=== PATIENT | male | born 1935 | race Caucasian/White ===

== ENCOUNTER 2018-04-11 21:35 | Emergency (ER) | payer OTHER ==
[~2018-04-11] VITALS: Ht 175.3 cm; Wt 81.6 kg
--- NOTE | 2018-04-11 23:15 | CT SCAN REPORT ---
EXAMINATION: CT HEAD WITHOUT CONTRAST CLINICAL INFORMATION: Unresponsive. Cardiac arrest. COMPARISON: None. TECHNIQUE: Contiguous axial images of the brain were obtained without IV contrast. DLP: 613 mGy-cm. FINDINGS: There are no pathologic extra-axial fluid collections. The lateral, third, fourth ventricles are prominent, though age-appropriate and concordant with the appearance of the sulci. There is no evidence for acute intraparenchymal hemorrhage or infarct. There is neither mass nor mass effect. There is no shift of midline structures. The paranasal sinuses and mastoid air cells are clear. There are no osseous lesions. IMPRESSION: No evidence for acute intracranial injury. Age-appropriate appearance of the brain.
[2018-04-11 23:33] VITALS: BP 58/33
--- NOTE | 2018-04-11 23:44 | CT SCAN REPORT ---
EXAMINATION: CT ANGIOGRAM CHEST, ABDOMEN AND PELVIS CLINICAL INFORMATION: Unresponsive. Cardiac arrest. Concern of aortic dissection. COMPARISON: None. TECHNIQUE: Noncontrast axial images obtained through the chest abdomen pelvis. Multiple axial images were obtained through the chest abdomen and pelvis following the administration of 95 mL of Optiray 320 intravenous contrast. Coronal and sagittal reformatted images performed at CT scanner. No 3-D imaging. DLP: 2305.09 mGy-cm. FINDINGS: There is streak artifact from the patient's arms at her side. VASCULAR: The thoracic aorta is ectatic with vascular wall calcifications with no dissection of the thoracic aorta. There is intraluminal thrombus within the aorta at the aortic arch and descending aorta. There is an aneurysm of the proximal abdominal aorta. The aneurysm begins at about the level of the celiac axis. Aneurysm measures 8.2 x 7.9 cm. There is intraluminal thrombus. The lumen of the aorta measures 5.7 x 4.7 cm. There is a small track of contrast extending from the lumen into the intraluminal thrombus, axial image 62 (6). There is aneurysmal leak. Hematoma extends from the aneurysm along the right lateral retroperitoneum with hemorrhagic fluid lying along the right retroperitoneum from the diaphragm through the pelvis hematoma is displacing the right kidney anteriorly. 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 This measures 2.6 cm. There is diffuse atherosclerotic vascular wall calcifications of the aorta There is partial opacification of the origin of the celiac axis and SMA. The celiac axis is threadlike. The origin of the SMA threadlike. 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 There is limited opacification of the mesenteric vessels distal to the aneurysm. There is no contrast enhancement of the renal arteries. There is limited opacification of the iliac arteries CT CHEST: MEDIASTINUM: No mediastinal mass. No significant lymphadenopathy. There is no pericardial effusion. Endotracheal tube in place. There is mild dilatation of the proximal esophagus containing air. LUNGS: There is a moderate-sized right pneumothorax. There is marked emphysematous changes of lung. FLUID: There is no pericardial effusion. There is no pleural effusion. CHEST WALL/AXILLA: There is subcutaneous emphysema at the right anterior chest wall. There is fracture of the anterior right second, third, fourth, fifth, sixth ribs. There is fracture of the left anterior fourth, fifth ribs. CT SCAN ABDOMEN PELVIS: LIVER, GALLBLADDER, AND BILIARY TREE: The liver is normal in size, shape, and attenuation. No focal hepatic lesion or biliary ductal dilatation is present. The gallbladder is unremarkable with no evidence of radiopaque gallstones, gallbladder wall thickening, or obvious pericholecystic inflammatory changes. PANCREAS: There is fatty atrophy of the pancreas. SPLEEN: Unremarkable. ADRENAL GLANDS: Unremarkable. KIDNEYS AND URETERS: The right kidney is displaced anteriorly by the retroperitoneal hematoma. There is a nonobstructive 5 mm stone in the upper pole of left kidney. There is no hydronephrosis. There is a 2 mm stone in the right kidney in the midpole. BLADDER: Unremarkable. GASTROINTESTINAL TRACT: There is severe diverticulosis of left colon and sigmoid. There are scattered diverticula right colon. No diverticulitis. No bowel obstruction. No bowel wall thickening or edema. The appendix is not seen. The small bowel loops are normal. ABDOMINAL WALL: No significant hernia is appreciated. LYMPH NODES: Normal. PELVIC VISCERA: Unremarkable. OSSEOUS STRUCTURES: Multilevel degenerative spondylosis spine with disc height narrowing and endplate spurring of the vertebrae. There are bilateral rib fractures. On the right there is fracture of the right second through sixth ribs. On the left there is fracture of the anterior fourth and fifth ribs. IMPRESSION: 1. Right-sided pneumothorax. Bilateral anterior fractures. Subcutaneous emphysema in the right anterior chest wall. 2. Marked emphysematous changes of lung. 3. 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 There is dissection of the aneurysm with retroperitoneal bleed. 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 There is poor perfusion of the abdominal vessels and poor runoff. Additional vascular findings as detailed above. 4. Nonobstructive left renal stone. 5. Marked diverticulosis of colon without acute change of the bowel. This critical result was discussed with Francy Christie on 04/11/2018, 11:35 PM and it was ascertained that the content and urgency of the report was understood at the time of direct communication.
[2018-04-11 23:45] LABS: ABSOLUTE BASOPHIL COUNT 0 /CUMM (0.0-0.2); ABSOLUTE EOSINOPHIL COUNT 0.1 /CUMM (0.0-0.7); ABSOLUTE MONOCYTE COUNT 0.1 /CUMM (0.10-0.60); BASOPHIL % 0.2 % (0.0-2.0); EOSINOPHIL % 2.2 % (0-5); GRANULOCYTE % 79.8 % (42.2-75.2); MEAN CORPUSCULAR HGB 30.1 PG (27.0-31.0); MEAN CORPUSCULAR HGB CONC 32.1 G/DL (33.0-37.0); MEAN CORPUSCULAR VOLUME 93.8 FL (80.0-94.0); MEAN PLATELET VOLUME 7.7 FL (7.4-10.4); PLATELET COUNT 91 /CUMM (130-400); RBC DISTRIBUTION WIDTH 15.2 % (11.5-14.5); RED BLOOD CELL CT 1.65 /CUMM (4.70-6.10); WHITE BLOOD CELL COUNT 6.2 /CUMM (4.8-10.8)
--- NOTE | 2018-04-11 23:50 | RADIOLOGY REPORT ---
EXAMINATION: CHEST 1 VIEW CLINICAL INFORMATION: Cardiac arrest. Intubated. COMPARISON: Same day chest CTA. TECHNIQUE: An AP view of the chest is provided. FINDINGS: The cardiac silhouette is not enlarged. An endotracheal tube is in place. The tip is approximately 5 cm above the kwesi. The mediastinal and hilar contours are unremarkable. The right-sided pneumothorax identified on the recent CT is not well demonstrated on this upright view. There is subcutaneous gas noted within the right chest wall. There is increasing opacification, likely airspace disease, developing within the right upper lung zone. The osseous structures are unremarkable. IMPRESSION: Endotracheal tube in place. Known right pneumothorax not well demonstrated on this view. Subcutaneous gas is identified within the right chest wall. Increasing opacification, likely airspace disease, within the right upper lung zone.
[2018-04-12 00:08] LABS: HEMATOCRIT 15.4 % (42-52)
[2018-04-12 00:09] LABS: PT 18.1 SEC (9.4-12.5)
[2018-04-12 00:11] LABS: PTT > 120 SEC (25-37)
--- NOTE | 2018-04-12 00:37 | ED GENERAL ADULT ---
History of Present Illness General Chief Complaint: Dyspnea (COPD, CHF, Other) Stated Complaint: RESPRITORY DISTRESS Source: patient, family, old records Exam Limitations: no limitations Allergies Coded Allergies: No Known Allergies (04/11/18) Triage Note: SEE NURSES NOTES Triage Nurses Notes Reviewed? yes HPI: 83M PMH HTN brought in by ambulance after presenting with acute, severe RLQ and right flank pain, became unresponsive at home. Per family stopped breathing when EMS arrived. Per EMS report patient was bagged and required assistance with breathing, sinus jesus 40's in EMS, BP steady, poorly responsive. On arrival to ED, patient was pale, BP 80/40, jesus 50's, poorly responsive. He became pulseless with 1 round of Epi and CPR and ROSC. 10 minutes later he again became pulses, again ROSC after 1 round of CPR and Epi. He started moving more after that, mainly with his right side, and required Ketamine for sedation so CT could be done. He was more hemodynamically stable at that point, BP 85/40 , HR 100's and sinus. EKG was NSR without ST/T changes. (Reed BENTON,Francy) Vital Signs & Intake/Output Vital Signs & Intake/Output Vital Signs Date Time Temp Pulse Resp B/P B/P Pulse O2 O2 Flow FiO2 Mean Ox Delivery Rate 04/12 0004 Ventilator 04/11 2333 96.9 92 28 58/33 100 Ventilator 100% 04/11 2320 80 26 59/37 100 Ventilator 100% 04/11 2249 100 04/11 2135 50 138/65 ED Intake and Output 04/12 0000 04/11 1200 Intake Total 2000 Output Total Balance 1999 Intake, IV 2000 Patient 81.647 kg Weight Weight Reported by Patient Measurement Method (Rachel BENTON,Landon Torres) Past History Travel History Traveled to [place] past 21 day No Medical History Any Pertinent Medical History? see below for history Surgical History Surgical History: cystoscopy, ureteral stents Family History Hx Contributory? No (Francy Mcbride MD) Review of Systems Review of Systems Constitutional: Reports: no symptoms. EENTM: Reports: no symptoms. Respiratory: Reports: no symptoms. Cardiovascular: Reports: no symptoms. GI: Reports: no symptoms. Genitourinary: Reports: no symptoms. Musculoskeletal: Reports: no symptoms. Skin: Reports: no symptoms. Neurological/Psychological: Reports: no symptoms. Hematologic/Endocrine: Reports: no symptoms. Immunologic/Allergic: Reports: no symptoms. All Other Systems: Reviewed and Negative (Reed BENTON,Francy) Physical Exam Physical Exam General Appearance: unresponsive, pale Head: atraumatic, normal appearance Eyes: Bilateral: other (pupils sluggish, R>L). Ears, Nose, Throat: normal pharynx, normal ENT inspection Neck: normal inspection Respiratory: decreased breath sounds bilaterally Cardiovascular: regular rate/rhythm Peripheral Pulses: 1+ femoral (R), 1+ femoral (L) Gastrointestinal: soft, distended, fluid wave on left consistent with hematoma Back: normal inspection Extremities: pale, decreased capillary refill Neurologic/Psych: gag reflex intact, pupils sluggish later fixed, withdraws to pain on the right, spontaneously moving on right, toes down Skin: intact, pallor, cool Core Measures ACS in differential dx? Yes CVA/TIA Diagnosis: No Sepsis Present: No Sepsis Focused Exam Completed? No (Reed BENTON,Francy) Progress Differential Diagnoses I considered the following diagnoses in my evaluation of the patient: OR, CVA, ICH, SAH, AAA, dissection, sepsis. Diagnostic Imaging: Viewed by Me: CT Scan. Discussed w/RAD: CT Scan. Radiology Impression: PATIENT: PEPE BLANCHARD PRESENT AGE: 83 PATIENT ACCOUNT NO: [id number] : 36 LOCATION: [facility] ([place]) ORDERING PHYSICIAN: Francy Mcbride MD SERVICE DATE: 04/11/18 EXAM TYPE : CAT - CT ABD & PELVIS ANGIOGRAM; CTA CHEST-AORTIC DISSECTION EXAMINATION: CT ANGIOGRAM CHEST, ABDOMEN AND PELVIS CLINICAL INFORMATION: Unresponsive. Cardiac arrest. Concern of aortic dissection. COMPARISON: None. TECHNIQUE: Noncontrast axial images obtained through the chest abdomen pelvis. Multiple axial images were obtained through the chest abdomen and pelvis following the administration of 95 mL of Optiray 320 intravenous contrast. Coronal and sagittal reformatted images performed at CT scanner. No 3-D imaging. DLP: 2305.09 mGy-cm. FINDINGS: There is streak artifact from the patient's arms at her side. VASCULAR: The thoracic aorta is ectatic with vascular wall calcifications with no dissection of the thoracic aorta. There is intraluminal thrombus within the aorta at the aortic arch and descending aorta. There is an aneurysm of the proximal abdominal aorta. The aneurysm begins at about the level of the celiac axis. Aneurysm measures 8.2 x 7.9 cm. There is intraluminal thrombus. The lumen of the aorta measures 5.7 x 4.7 cm. There is a small track of contrast extending from the lumen into the intraluminal thrombus, axial image 62 (6). There is aneurysmal leak. Hematoma extends from the aneurysm along the right lateral retroperitoneum with hemorrhagic fluid lying along the right retroperitoneum from the diaphragm through the pelvis hematoma is displacing the right kidney anteriorly. 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 This measures 2.6 cm. There is diffuse atherosclerotic vascular wall calcifications of the aorta There is partial opacification of the origin of the celiac axis and SMA. The celiac axis is threadlike. The origin of the SMA threadlike. 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 There is limited opacification of the mesenteric vessels distal to the aneurysm. There is no contrast enhancement of the renal arteries. There is limited opacification of the iliac arteries CT CHEST: MEDIASTINUM: No mediastinal mass. No significant lymphadenopathy. There is no pericardial effusion. Endotracheal tube in place. There is mild dilatation of the proximal esophagus containing air. LUNGS: There is a moderate-sized right pneumothorax. There is marked emphysematous changes of lung. FLUID: There is no pericardial effusion. There is no pleural effusion. CHEST WALL/AXILLA: There is subcutaneous emphysema at the right anterior chest wall. There is fracture of the anterior right second, third, fourth, fifth, sixth ribs. There is fracture of the left anterior fourth, fifth ribs. CT SCAN ABDOMEN PELVIS: LIVER, GALLBLADDER, AND BILIARY TREE: The liver is normal in size, shape, and attenuation. No focal hepatic lesion or biliary ductal dilatation is present. The gallbladder is unremarkable with no evidence of radiopaque gallstones, gallbladder wall thickening, or obvious pericholecystic inflammatory changes. PANCREAS: There is fatty atrophy of the pancreas. SPLEEN: Unremarkable. ADRENAL GLANDS: Unremarkable. KIDNEYS AND URETERS: The right kidney is displaced anteriorly by the retroperitoneal hematoma. There is a nonobstructive 5 mm stone in the upper pole of left kidney. There is no hydronephrosis. There is a 2 mm stone in the right kidney in the midpole. BLADDER: Unremarkable. GASTROINTESTINAL TRACT: There is severe diverticulosis of left colon and sigmoid. There are scattered diverticula right colon. No diverticulitis. No bowel obstruction. No bowel wall thickening or edema. The appendix is not seen. The small bowel loops are normal. ABDOMINAL WALL: No significant hernia is appreciated. LYMPH NODES: Normal. PELVIC VISCERA: Unremarkable. OSSEOUS STRUCTURES: Multilevel degenerative spondylosis spine with disc height narrowing and endplate spurring of the vertebrae. There are bilateral rib fractures. On the right there is fracture of the right second through sixth ribs. On the left there is fracture of the anterior fourth and fifth ribs. IMPRESSION: 1. Right-sided pneumothorax. Bilateral anterior fractures. Subcutaneous emphysema in the right anterior chest wall. 2. Marked emphysematous changes of lung. 3. 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 There is dissection of the aneurysm with retroperitoneal bleed. 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 There is poor perfusion of the abdominal vessels and poor runoff. Additional vascular findings as detailed above. 4. Nonobstructive left renal stone. 5. Marked diverticulosis of colon without acute change of the bowel. This critical result was discussed with Francy Christie on 04/11/2018, 11:35 PM and it was ascertained that the content and urgency of the report was understood at the time of direct communication. DICTATED BY: Jose Manuel Edward MD DATE/TIME DICTATED:04/11/182314 ENVIRONMENTAL MANAGEMENT SPECIALIST:SHERRON DATE/TIME TRANSCRIBED:2314 CONFIDENTIAL, DO NOT COPY WITHOUT APPROPRIATE AUTHORIZATION. < Electronically signed in Other Vendor System> SIGNED BY: Jose Manuel Edward MD [id number], PATIENT: PEPE BLANCHARD PRESENT AGE: 83 PATIENT ACCOUNT NO: [id number] : 36 LOCATION: [facility] ([place]) ORDERING PHYSICIAN: Francy Mcbride MD SERVICE DATE: 04/11/18 EXAM TYPE: CAT - CT HEAD WO IV CONTRAST EXAMINATION: CT HEAD WITHOUT CONTRAST CLINICAL INFORMATION: Unresponsive. Cardiac arrest. COMPARISON: None. TECHNIQUE: Contiguous axial images of the brain were obtained without IV contrast. DLP: 613 mGy-cm. FINDINGS : There are no pathologic extra-axial fluid collections. The lateral, third, fourth ventricles are prominent, though age-appropriate and concordant with the appearance of the sulci. There is no evidence for acute intraparenchymal hemorrhage or infarct. There is neither mass nor mass effect. There is no shift of midline structures. The paranasal sinuses and mastoid air cells are clear. There are no osseous lesions. IMPRESSION: No evidence for acute intracranial injury. Age-appropriate appearance of the brain. DICTATED BY: Colt Rodriguez MD DATE/TIME DICTATED:04/11/182308 ENVIRONMENTAL MANAGEMENT SPECIALIST:SHERRON DATE/TIME TRANSCRIBED:04/11/182308 CONFIDENTIAL, DO NOT COPY WITHOUT APPROPRIATE AUTHORIZATION. <Electronically signed in Other Vendor System> SIGNED BY: Colt Rodriguez MD 04/11/182314 CXR Impression: PATIENT: PEPE BLANCHARD PRESENT AGE : 83 PATIENT ACCOUNT NO: [id number] : 36 LOCATION: [facility] ([place]) ORDERING PHYSICIAN: Francy Mcbride MD SERVICE DATE: 04/11/18 EXAM TYPE: RAD - XRY-PORTABLE CHEST XRAY EXAMINATION: CHEST 1 VIEW CLINICAL INFORMATION: Cardiac arrest. Intubated. COMPARISON: Same day chest CTA. TECHNIQUE: An AP view of the chest is provided. FINDINGS: The cardiac silhouette is not enlarged. An endotracheal tube is in place. The tip is approximately 5 cm above the kwesi. The mediastinal and hilar contours are unremarkable. The right-sided pneumothorax identified on the recent CT is not well demonstrated on this upright view. There is subcutaneous gas noted within the right chest wall. There is increasing opacification, likely airspace disease, developing within the right upper lung zone. The osseous structures are unremarkable. IMPRESSION: Endotracheal tube in place. Known right pneumothorax not well demonstrated on this view. Subcutaneous gas is identified within the right chest wall. Increasing opacification, likely airspace disease, within the right upper lung zone. DICTATED BY: Colt Rodriguez MD DATE/TIME DICTATED:04/11/182343 ENVIRONMENTAL MANAGEMENT SPECIALIST:SHERRON DATE/TIME TRANSCRIBED:04/11/182343 CONFIDENTIAL, DO NOT COPY WITHOUT APPROPRIATE AUTHORIZATION. <Electronically signed in Other Vendor System> SIGNED BY: Colt Rodriguez MD 04/11/182349 Initial ED EKG: normal sinus rhythm, no ST T wave changes (Francy Mcbride MD) Plan of Care: Orders Procedure Date/time Status Add-on Test (ER Only) 04/12 0037 Active LEUKOCYTE POOR (PACKED CELLS) 04/12 0016 Active TYPE & SCREEN (NOT X-MATCH) 04/11 233 Complete VENTILATOR PARAMETERS 04/11 225 Complete ARTERIAL BLOOD GAS (GEN) 04/11 2153 Complete TROPONIN LEVEL 04/11 2147 Complete PARTIAL THROMBOPLASTIN TIME 04/11 2147 Complete PROTHROMBIN TIME 04/11 2147 Complete LACTIC ACID 04/11 2147 Complete COMPREHENSIVE METABOLIC PANEL 04/11 2147 Complete CREATINE PHOSPHOKINASE 04/11 2147 Complete CBC WITHOUT DIFFERENTIAL 04/11 2147 Complete EKG 04/11 2139 Active Laboratory Tests 04/12/18 0047: Lactic Acid Cancelled 04/11/182329: Anion Gap 13, Estimated GFR 25 L, BUN/Creatinine Ratio 12.0, Glucose 242 H, Lactic Acid 9.0 H, Calcium 6.6 L, Total Bilirubin 0.8, AST 147 H, ALT 227 H, Alkaline Phosphatase 103, Creatine Kinase 110, Troponin I 0.04, Total Protein 3.1 L, Albumin 1.6 L, Globulin 1.5 L, Albumin/Globulin Ratio 1.1, PT 18.1 H, INR 1.65 H, APTT > 120 *H, CBC w Diff NO MAN DIFF REQ, RBC 1.65 L, MCV 93.8, MCH 30.1, MCHC 32.1 L, RDW 15.2 H, MPV 7.7, Gran % 79.8 H, Lymphocytes % 16.1 L, Monocytes % 1.7, Eosinophils % 2.2, Basophils % 0.2, Absolute Granulocytes 5.0, Absolute Lymphocytes 1.0 L, Absolute Monocytes 0.1, Absolute Eosinophils 0.1, Absolute Basophils 0 CTA showed ruptured AAA. Vascular surgery was consulted, and Dr. Hernández was on his way on to consult and speak to family. Family wanted surgical intervention if possible. Blood products were ordered as well as crystalloid (which was given). Patient went into asystole and compressions were started. At that point family requested that CPR be stopped and patient allowed natural . Family was at bedside. Tromper was called. (Reed BENTON,Francy) Comments: 04/12/2018 2:40:42 AM although Milagro was taken care of primarily by Dr. Mcbride , I participated in this patient's care by intubating the patient during initial resuscitation and also providing chest compressions during his final cardiac arrest. (Rachel BENTON,Landon Torres) Departure Departure Disposition: Condition: Stable Clinical Impression Primary Impression: Ruptured abdominal aortic aneurysm (AAA) Secondary Impressions: Internal hemorrhage, Shock circulatory Referrals: Rosendo Jarrell MD (PCP/Family) Departure Forms: Customer Survey General Discharge Information (Francy Mcbride MD) Procedures Intubation Intubation Method: orotracheal Medications: ETOMIDATE Breath Sounds After Intubation: equal Intubation Complications: no complications Post Intubation Xray? Yes (Francy Mcbride MD) Intubation Intubation Method: orotracheal Tube Size (cm): 8.0 Medications: ETOMIDATE Breath Sounds After Intubation: equal Intubation Complications: no complications Post Intubation Xray? Yes (Rachel BENTON,Landon Torres) Critical Care Note Critical Care Note Critical Care Time: 75-104 min Total CPR Time (mins): 4 (Francy Mcbride MD)
== END 2018-04-12 00:44 | disposition expired ==
LOC: ERH 21:35
PROVIDERS: Internal Medicine
DX: I71.3 Abdominal aortic aneurysm, ruptured (principal); R58 Hemorrhage, not elsewhere classified; R57.9 Shock, unspecified
CPT/HCPCS: 1344; 1387; 71045; 74174; 86920; 94799; 96374; 96375; 96376; 99291